=== PATIENT | female | born 1970 | race Caucasian/White ===

== ENCOUNTER → 2017-01-12 | Outpatient (CLI) | payer BC ==
--- NOTE | 2017-01-13 10:12 | US ---
EXAMINATION: Bilateral digital mammography utilizing CAD with targeted left breast ultrasound. HISTORY: Lump. Comparison is made to previous studies dated 04/10/2015, 10/25/2012. FINDINGS: Bilateral heterogeneously dense breast tissue. There is a 2.4 cm round mass at the approximate 1 o'clock position of the left breast. Targeted ultr asound evaluation of this region demonstrates multiple cystic masses, the largest measuring up to 1. 5 cm on ultrasound. No suspicious calcifications, masses or architectural distortions. No pathologic appearing lymph nodes, no abnormal skin thickening or nipple inversion. CAD highlighted regions appear normal at this time. IMPRESSION: BI-RADS category II - Benign finding. Continued screening according to ACR-ACS guidelines suggested. THE FALSE-NEGATIVE RATE OF MAMMOGRAM IS APPROXIMATELY 10%. MANAGEMENT OF A PALPABLE ABNORMALITY MUST BE BASED UPON CLINICAL GROUNDS. SENSITIVITY FOR DETECTION OF ABNORMALITIES IN DENSE BREASTS IS LOW. NOTE: A letter will be sent to the patient regarding findings. [facility] -- REGI Bosch [phone] - FAX [phone]
== END ==
LOC: MW.MAM 12:53
PROVIDERS: ATTEND Obstetrics & Gynecology
DX: N63 Unspecified lump in breast (principal)
CPT/HCPCS: 76642; G0204

== ENCOUNTER 2025-06-16 15:16 | Emergency (ER) | payer BC ==
[2025-06-16] MEDS ORDERED: Sodium Chloride 0.9% 2.5 ML Syringe FLUSH PRN (15:43)
[2025-06-16] MEDS ORDERED: Sodium Chloride 0.9% 10 ML Syringe FLUSH PRN (15:43)
== END 2025-06-16 17:31 | disposition left against medical advice (07) ==
LOC: MW.ED 15:16
DX: K35.33 Acute appendicitis with perforation, localized peritonitis, and gangrene, with abscess (principal)
CPT/HCPCS: 96365; 99283; J2543; 99285